=== PATIENT | female | born 1960 | race Caucasian/White ===

== ENCOUNTER 2018-05-02 18:41 | Emergency (ER) | payer OTHER ==
[~2018-05-02] VITALS: Ht 165.1 cm; Wt 52.2 kg
== END 2018-05-03 17:43 | disposition home or self-care (01) ==
LOC: ER 18:41
DX: D64.89 Other specified anemias (principal)
CPT/HCPCS: 36430 ×2; 86904 ×2; 86922 ×2; P9021 ×2; 74176

== ENCOUNTER 2018-07-02 15:08 | Outpatient (CLI) | payer OTHER | END 2018-07-02 15:29 | disposition home or self-care (01) | LOC: MAMO-SONO 15:08 | DX: Z12.31 Encounter for screening mammogram for malignant neoplasm of breast (principal); N60.21 Fibroadenosis of right breast; N60.22 Fibroadenosis of left breast; R92.2 Inconclusive mammogram ==

== ENCOUNTER 2019-06-06 13:42 | Outpatient (CLI) | payer OTHER | END 2019-06-06 13:44 | disposition home or self-care (01) | LOC: NUCLEAR 13:42 | DX: M81.0 Age-related osteoporosis without current pathological fracture (principal) ==

== ENCOUNTER 2021-12-07 13:28 | Inpatient (IN) | payer OTHER ==
[~2021-12-07] VITALS: Ht 160 cm; Wt 49.9 kg
== END 2021-12-09 06:31 | disposition designated cancer center or children's hospital (05) | DRG 282 ==
LOC: ER 13:28 → ICU-2 18:08
PROVIDERS: ADMIT Internal Medicine; ATTEND Internal Medicine
PROC: B24BZZZ Ultrasonography of Heart with Aorta (ICD-10-PCS; principal; 2021-12-08)
PROC: BW24ZZZ Computerized Tomography (CT Scan) of Chest and Abdomen (ICD-10-PCS; 2021-12-08)
DX: I24.9 Acute ischemic heart disease, unspecified (principal); I21.4 Non-ST elevation (NSTEMI) myocardial infarction; D64.9 Anemia, unspecified; I10 Essential (primary) hypertension; R07.89 Other chest pain; Z20.822 Contact with and (suspected) exposure to COVID-19

== ENCOUNTER 2023-10-26 07:14 | Outpatient (CLI) | payer OTHER | END 2023-10-26 13:25 | disposition home or self-care (01) | LOC: MRI 07:14 | PROVIDERS: ATTEND Internal Medicine | DX: G43.909 Migraine, unspecified, not intractable, without status migrainosus (principal); H81.4 Vertigo of central origin; K80.20 Calculus of gallbladder without cholecystitis without obstruction; R10.9 Unspecified abdominal pain | CPT/HCPCS: 70551; 74181 ==

== ENCOUNTER 2025-03-18 12:51 | Outpatient (CLI) | payer OTHER | END 2025-03-18 13:07 | disposition home or self-care (01) | LOC: MRI 12:51 | PROVIDERS: ATTEND Neuromusculoskeletal Medicine & OMM | DX: R42 Dizziness and giddiness (principal); H93.3X9 Disorders of unspecified acoustic nerve; M50.20 Other cervical disc displacement, unspecified cervical region | CPT/HCPCS: 70553; 72141 ==